=== PATIENT | male | born 1975 | race Two or more races ===

== ENCOUNTER 2018-11-10 02:12 | Emergency (ER) | payer OTHER ==
[~2018-11-10] VITALS: Ht 172.7 cm; Wt 86.2 kg
--- NOTE | 2018-11-10 02:22 | NUR ---
Pt. BIB [facility] for AMS, pt. is poorly responsive to painful stimuli only and smells of alcohol, PERRLA bilat., pt. is snoring loudly, VSS, bed in low position, guardrails up, blanket given for comfort, monitoring from nurse station, marijuana pipe w/ belongings, reported to be found sleeping on bench outside of [facility],
--- NOTE | 2018-11-10 02:25 | NUR ---
at bedside for MSE
--- NOTE | 2018-11-10 02:35 | NUR ---
Phleb. tech. at bedside for blood draw,
--- NOTE | 2018-11-10 03:30 | NUR ---
Pt. resting in bed, NAD, all needs met,
--- NOTE | 2018-11-10 04:23 | NUR ---
Pt. resting in bed w/ eyes closed, NAD, snoring in sleep, monitoring from nurse station,
--- NOTE | 2018-11-10 05:19 | NUR ---
Pt. resting in bed, IV intact - no s/s infiltration/phlebitis, flushes w/o difficulty,
--- NOTE | 2018-11-10 07:45 | NUR ---
PT AWAKE AND ABLE TO SELF-AMBULATE W/O DIFFICULTY. PT IS A/OX4, W/ CLEAR SPEECH.
--- NOTE | 2018-11-10 07:54 | NUR ---
Patient discharged to home in stable conditon. Written and verbal after care instructions given. Patient verbalizes understanding of instructions. ALL BELONGINGS W/ PT. PT SELF-AMBULATED W/O DIFFICULTY. 18G IV ACCESS IN LAC REMOVED PRIOR TO D/C - INNER CANNULA INTACT.
[2018-11-10 07:55] VITALS: BP 128/72
== END 2018-11-10 07:56 | disposition home or self-care (01) ==
LOC: ER 02:15
DX: F10.129 Alcohol abuse with intoxication, unspecified (principal); R40.0 Somnolence; Y90.7 Blood alcohol level of 200-239 mg/100 ml
CPT/HCPCS: 36415; 82962; 99283; G0480; A4663